=== PATIENT | female | born 1945 | race Caucasian/White ===

== ENCOUNTER 2020-10-29 20:19 | Emergency (ER) | payer OTHER ==
[2020-10-29 20:29] VITALS: PULSE 57; TEMP 97.8; BMI 22.6
[2020-10-29 21:45] LABS: BASO % 0.9 % (0-2.0); EOS % 6.3 % (0-4.5); HEMATOCRIT 40.4 % (32.4-45.2); HEMOGLOBIN 13.6 GM/dL (10.7-15.3); MCH 29.2 pg (25.7-33.7); MCHC 33.6 g/dl (32.0-36.0); MEAN CELL VOLUME 86.9 fl (80-96); MEAN PLT VOLUME 7.9 fl (7.5-11.1); MONO % 7.1 % (3.8-10.2); NEUT % 59.7 % (42.8-82.8); PLATELET COUNT 282 10^3/uL (134-434); RBC 4.65 M/mm3 (3.60-5.2); RDW 13.5 % (11.6-15.6); WHITE BLOOD COUNT 7.1 K/mm3 (4.0-10.0)
[2020-10-29 22:06] LABS: CHLORIDE 105 mmol/L (98-107); SODIUM 140 mmol/L (136-145)
[2020-10-29 22:08] LABS: ALBUMIN 3.9 g/dl (3.4-5.0); ANION GAP 8 MMOL/L (8-16); BLOOD UREA NITROGEN 12.3 mg/dL (7-18); CO2 27 mmol/L (21-32)
[2020-10-29 22:11] LABS: SGOT/AST 12 U/L (15-37); SGPT/ALT 22 U/L (13-61)
[2020-10-29 22:12] LABS: CREATININE 1.1 mg/dL (0.55-1.3)
[2020-10-29 22:13] LABS: BILIRUBIN,TOTAL 0.3 mg/dL (0.2-1); TOT PROT 7.4 g/dl (6.4-8.2)
[2020-10-29 22:14] LABS: ALK PHOS 69 U/L (45-117)
[2020-10-29 22:43] VITALS: BP 155/76
[2020-10-29 22:44] LABS: CALCIUM 9.4 mg/dL (8.5-10.1); GLUCOSE,RANDOM 109 mg/dL (74-106)
== END 2020-10-29 23:08 | disposition home or self-care (01) ==
LOC: JER 20:19
DX: R42 Dizziness and giddiness (principal); I10 Essential (primary) hypertension; R53.83 Other fatigue
CPT/HCPCS: 36415; 71045-TC-FY; 80053; 84439; 84443; 84484; 85025; 93005; 93010; 99285-25; C9803; U0003; U0005